=== PATIENT | female | born 1970 | race Two or more races ===

== ENCOUNTER 2021-01-04 10:05 | Emergency (ER) | payer MEDICAID, OTHER ==
[~2021-01-04] VITALS: Ht 160 cm; Wt 63.5 kg
[2021-01-04] MEDS ORDERED: IBUPROFEN 600 MG TAB PO ONE (13:00)
[2021-01-04 15:05] VITALS: BP 132/98
== END 2021-01-04 15:37 | disposition home or self-care (01) ==
LOC: ER 10:05
DX: S13.4XXA Sprain of ligaments of cervical spine, initial encounter (principal); M54.5 Low back pain; V49.9XXA Car occupant (driver) (passenger) injured in unspecified traffic accident, initial encounter; Y93.89 Activity, other specified; Y92.89 Other specified places as the place of occurrence of the external cause; Y99.8 Other external cause status
CPT/HCPCS: 70450; 72080; 72125